=== PATIENT | female | born 1960 | race Caucasian/White ===

== ENCOUNTER 2017-04-21 14:21 | Emergency (ER) | payer SELFPAY ==
[~2017-04-21] VITALS: Ht 162.6 cm; Wt 86.4 kg
[2017-04-21 14:24] VITALS: BP 162/83; PULSE 105; RESP 18; TEMP 99; O2SAT 97
[2017-04-21] MEDS ORDERED: SIMV40TA PO (14:45)
[2017-04-21] MEDS ORDERED: AMIT100T2 PO (14:45)
[2017-04-21] MEDS ORDERED: GABA100C4 PO (14:45)
[2017-04-21] MEDS ORDERED: PERC5TAB12 PO (14:45)
--- NOTE | 2017-04-21 14:57 | PD ---
HPI Chief Complaint: Head Injury Time Seen by Provider: 14:29 Travel History International Travel<30 days: No Contact w/Intl Traveler<30days: No Traveled to known affect area: No History of Present Illness HPI 56 -year-old female presents to the emergency department for evaluation after she slipped and fell and hit her head. She denies LOC. However, she states she has a headache from the injury. She denies any other injury. No neck pain or back pain. No chest pain or shortness of breath. No abdominal pain. No nausea, vomiting, diarrhea. She has been ambulatory since the fall. Patient is not on anticoagulants. Moderate severity. PFSH Past Medical History Diabetes: No GERD: Yes Medical other: Yes (CHRONIC PAIN) Tetanus Vaccination: < 5 Years Influenza Vaccination: No ?: Not Tubal Ligation: Yes Past Surgical History Cholecystectomy: Yes Hysterectomy: Yes Tonsillectomy: Yes Social History Alcohol Use: No Tobacco Use: Yes (1 PPD) Substance Use: No Allergies-Medications (Allergen,Severity, Reaction): Coded Allergies: Sulfa (Sulfonamide Antibiotics) (Verified Allergy, Intermediate, 04/21/17) adhesive (Verified Allergy, Intermediate, 04/21/17) aspirin (Verified Allergy, Intermediate, 04/21/17) ciprofloxacin (Verified Allergy, Intermediate, 04/21/17) ibuprofen (Verified Allergy, Intermediate, 04/21/17) acetaminophen (Verified Allergy, Mild, 04/21/17) Reported Meds & Prescriptions Reported Meds & Active Scripts Active Reported Gabapentin 100 Mg Cap 100 Mg PO TID Amitriptyline (Amitriptyline HCl) 100 Mg Tab 100 Mg PO HS Percocet (Oxycodone-Acetaminophen) 5-325 mg Tab 1 Tab PO Q4H PRN Review of Systems Except as stated in HPI: all other systems reviewed are Neg Physical Exam Narrative GENERAL: Well-nourished, well-developed female patient, afebrile. SKIN: Focused skin assessment warm/dry. HEAD: Normocephalic. Atraumatic. ENT: Mucosa pink and moist. No erythema or exudates. No uvular edema. No uvular , palatal, or tonsillar deviation. Airway patent. Nasal turbinates appear normal without nasal blood, purulent drainage or septal hematoma. Bilateral tympanic membranes are clear without erythema or perforation. EYES: No scleral icterus. No injection or drainage. NECK: Supple, trachea midline. No JVD or lymphadenopathy. CARDIOVASCULAR: Regular rate and rhythm without murmurs, gallops, or rubs. RESPIRATORY: Breath sounds equal bilaterally. No accessory muscle use. Lungs sounds are clear to auscultation. GASTROINTESTINAL: Abdomen soft, non-tender, nondistended. MUSCULOSKELETAL: No cyanosis, or edema. BACK: Nontender without obvious deformity. No CVA tenderness. Data Data Last Documented VS Vital Signs Date Time Temp Pulse Resp B/P (MAP) Pulse Ox O2 Delivery O2 Flow Rate FiO2 04/21/17 14:36 100 18 98 Room Air 04/21/17 14:24 99.0 162/83 (109) Orders Orders Ct Brain W/O Iv Contrast(Rout) (04/21/17 ) [facility] Medical Decision Making Medical Screen Exam Complete: Yes Emergency Medical Condition: Yes Medical Record Reviewed: Yes Interpretation(s) Last Impressions Head CT 04/21/17 0000 Signed Impressions: Service Date/Time: Friday, April 21, 2017 15:02 - CONCLUSION: No acute intracranial findings Brad King MD Differential Diagnosis Closed head injury versus intracranial abnormality versus fall Narrative Course 56-year-old female presents to the emergency department for evaluation of head injury after she slipped and fell today. CT of the brain is ordered and pending. CT of the brain shows no acute intracranial findings. Patient is stable for discharge. She is instructed to follow-up with her primary care physician. Patient verbalizes agreement and understanding. The patient was discharged in stable condition with instructions, including return instructions and follow up instructions. Diagnosis Primary Impression: Closed head injury Qualified Codes: S09.90XA - Unspecified injury of head, initial encounter Referrals: Primary Care Physician call for appointment Patient Instructions: General Instructions, Head Injury (ED) Additional Instructions: Follow-up with your primary care physician. Return to the emergency department for any acute worsening of symptoms. Med/Other Pt SpecificInfo: No Change to Meds Disposition: 01 DISCHARGE HOME Condition: Stable ElioKristi FUNES Apr 21, 2017 14:57
--- NOTE | 2017-04-21 15:42 | RADRPT ---
EXAM DATE/TIME: 04/21/2017 15:02 [facility] COMPARISON: No previous studies available for comparison. INDICATIONS : Right sided head pain due to slip and fall today. RADIATION DOSE: 56.35 CTDIvol (mGy) MEDICAL HISTORY : None SURGICAL HISTORY : Tonsillectomy. Tubal ligation.Craniotomy. ENCOUNTER: Initial ACUITY: 1 day PAIN SCALE: 8/10 LOCATION: Right cranial TECHNIQUE: Multiple contiguous axial images were obtained of the head. Using automated exposure control and adj ustment of the mA and/or kV according to patient size, radiation dose was kept as low as reasonably a chievable to obtain optimal diagnostic quality images. DICOM format image data is available electro nically for review and comparison. FINDINGS: There is a small focus of encephalomalacia in the high convexity right parietal region. There is no e vidence of intracranial mass or hemorrhage. There is nothing to suggest acute infarction. There has b een previous right frontotemporal craniotomy. The cranial structures are otherwise benign and intact. CONCLUSION: No acute intracranial findings Brad King MD on April 21, 2017 at 15:36 Board Certified Radiologist. This report was verified electronically.
== END 2017-04-21 16:49 | disposition home or self-care (01) ==
LOC: NEPD 14:21
DX: S09.90XA Unspecified injury of head, initial encounter (principal); F17.200 Nicotine dependence, unspecified, uncomplicated; W01.0XXA Fall on same level from slipping, tripping and stumbling without subsequent striking against object, initial encounter
CPT/HCPCS: 70450; 99284